=== PATIENT | female | born 1960 | race Caucasian/White ===

== ENCOUNTER → 2016-09-09 | Outpatient (CLI) | payer OTHER ==
--- NOTE | 2016-09-10 11:20 | Diagnostic Imaging Report ---
CT scan abdomen and pelvis without intravenous contrast HISTORY: Pain Total DLP equals 615 CTDI equals 12.7 Axial sections were obtained from the xiphoid process down to the pubic symphysis. The liver exhibits a homogeneous parenchyma. No focal lesions. The spleen appears normal. No abnormality seen in the region of the pancreas. There is a 1 mm calculus within the anterior cortex of the right kidney. No hydronephrosis. A 3 mm calculus is seen in the cortex the left kidney. No hydronephrosis. The exam of the pelvis demonstrates preservation of normal fat planes. No abnormal soft tissue masses or abnormal fluid collections. Evaluation of the colon and small bowel is limited due to the absence of oral/bowel contrast. Multiple small calcifications noted in the lower pelvis consistent with phleboliths. Degenerative changes noted throughout the time. IMPRESSION: 1. Small bilateral nonobstructing renal calculi 2. Degenerative changes throughout the spine
== END ==
LOC: RAD 19:10 → ER 19:10
PROVIDERS: ATTEND Emergency Medicine
DX: N20.0 Calculus of kidney (principal); R11.2 Nausea with vomiting, unspecified; M47.899 Other spondylosis, site unspecified